=== PATIENT | male | born 1975 | race Caucasian/White ===

== ENCOUNTER 2018-12-12 13:22 | Emergency (ER) | payer MEDICAID ==
--- NOTE | 2018-12-12 14:03 | EDM.PDOC ---
ED HPI GENERAL MEDICAL PROBLEM - General Chief Complaint: Abdominal Pain Stated Complaint: ABDOMINAL PAIN, CRAMPING, DIZZINESS Time Seen by Provider: 12/12/18 13:22 Source of Information: Reports: Patient History Limitations: Reports: No Limitations - History of Present Illness INITIAL COMMENTS - FREE TEXT/NARRATIVE: 43 y.o.w.m came to the ED due generalized abd. pain, more so at his mid upper and right upper abd. No N/V/D, no trauma, no prev surgeries. It does not matter what food he is eating. No blood in stool. No F/C No trauma. No other acute med issues. Pt takes Omeprazole daily. BP 131/87 RR 18 Pulse ox 98% on RA Pulse 98 Temp 36.7 Onset Date: 11/20/18 Onset Time: 10:00 Duration: Getting Worse, Intermittent Location: Reports: Abdomen Quality: Reports: Ache, Burning, Dull, Pressure Severity: Moderate Improves with: Reports: None Worsens with: Reports: None Context: Reports: Other Associated Symptoms: Reports: No Other Symptoms Upper Abdomen Pain Score (Numeric/FACES): 5 - Related Data Allergies Allergy/AdvReac Type Severity Reaction Status Date / Time Penicillins Allergy Cannot Verified 12/12/18 13:49 Remember Home Meds: Home Meds . [Unable to Verify Home Med List] 12/12/18 [History] ED ROS GENERAL - Review of Systems Review Of Systems: See Below Constitutional: Reports: No Symptoms HEENT: Reports: No Symptoms Respiratory: Reports: No Symptoms Cardiovascular: Reports: No Symptoms Endocrine: Reports: No Symptoms GI/Abdominal: Reports: Abdominal Pain : Reports: No Symptoms Musculoskeletal: Reports: No Symptoms Skin: Reports: No Symptoms Neurological: Reports: No Symptoms Psychiatric: Reports: No Symptoms Hematologic/Lymphatic: Reports: No Symptoms Immunologic: Reports: No Symptoms ED EXAM, GI/ABD - Physical Exam Exam: See Below Exam Limited By: No Limitations General Appearance: Alert, WD/WN, Mild Distress Eyes: Bilateral: Normal Appearance Ears: Normal External Exam Nose: Normal Inspection Throat/Mouth: Normal Inspection, Normal Lips, Normal Voice, No Airway Compromise Head: Atraumatic, Normocephalic Neck: Normal Inspection, Supple, Non-Tender Respiratory/Chest: No Respiratory Distress, Lungs Clear, Normal Breath Sounds Cardiovascular: Normal Peripheral Pulses, Regular Rate, Rhythm, No Edema, No Gallop, No Murmur, No Rub GI/Abdominal Exam: No Organomegaly, No Distention, No Abnormal Bruit, No Mass, Pelvis Stable, Tender (Mid upper RUQ of abdomen. ) (Male) Exam: Deferred Rectal (Males) Exam: Deferred Back Exam: Normal Inspection, Full Range of Motion Extremities: Normal Inspection, Normal Range of Motion, Non-Tender, No Pedal Edema, Normal Capillary Refill Neurological: Alert, Oriented, CN II-XII Intact, Normal Cognition, Normal Gait, No Motor/Sensory Deficits Psychiatric: Normal Affect, Normal Mood Skin Exam: Warm, Dry, Intact, Normal Color, No Rash Lymphatic: No Adenopathy Course - Vital Signs Text/Narrative:: 43 y.o.w.m came to the ED due generalized abd. pain, more so at his mid upper and right upper abd. No N/V/D, no trauma, no prev surgeries. It does not matter what food he is eating. No blood in stool. No F/C No trauma. No other acute med issues. Pt takes Omeprazole daily. BP 131/87 RR 18 Pulse ox 98% on RA Pulse 98 Temp 36.7 PE: WNWD EW M with abs. pain Imaging: abd, and Duodenal ant wal thickening, possible gastric outlet obstruction Labs: CBC, BMP and UA nl LFTs nl Impression: abd, and Duodenal ant wall thickening, possible gastric outlet obstruction. Tx: None in the ED Reexam: Pt was doing fine in the ED Plan: D/C with instructions Last Recorded V/S: Last Vital Signs Temp 36.8 C 12/12/18 13:22 Pulse 68 12/12/18 13:22 Resp 18 12/12/18 13:22 BP 131/87 12/12/18 13:22 Pulse Ox 99 12/12/18 13:22 - Orders/Labs/Meds Orders: Active Orders 24 hr Category Date Time Status Abdomen Pelvis w Cont [CT] Stat Exams 12/12/18 13:59 Taken Labs: Laboratory Tests 12/12/18 12/12/18 12/12/18 Range/Units 14:15 14:15 14:15 WBC 8.3 (4.5-12.0) X10-3/uL RBC 5.09 (4.30-5.75) x10(6)uL Hgb 15.8 (13.5-17.8) g/dL Hct 45.5 (30.0-51.3) % MCV 89.5 (80-96) fL MCH 31.0 (27.7-33.6) pg MCHC 34.7 (32.2-35.4) g/dL RDW 12.2 (11.5-15.5) % Plt Count 182 (125-369) X10(3)uL MPV 9.5 (7.4-10.4) fL Neut % (Auto) 60.0 (46-82) % Lymph % (Auto) 26.6 (13-37) % [place] % (Auto) 8.6 (4-12) % Eos % (Auto) 2 (1.0-5.0) % Baso % (Auto) 3 H (0-2) % Neut # (Auto) 5.0 (1.6-8.3) # Lymph # (Auto) 2.2 (0.6-5.0) # [place] # (Auto) 0.7 (0.0-1.3) # Eos # (Auto) 0.1 (0.0-0.8) # Baso # (Auto) 0.3 H (0.0-0.2) # PT 9.4 (8.7-11.1) INR 0.97 (0.89-1.13) Sodium 141 (135-145) mmol/L Potassium 3.8 (3.5-5.3) mmol/L Chloride 105 (100-110) mmol/L Carbon Dioxide 26 (21-32) mmol/L BUN 25 H (7-18) mg/dL Creatinine 0.9 (0.70-1.30) mg/dL Est Cr Clr Drug Dosing TNP Estimated GFR (MDRD) > 60 (>60) BUN/Creatinine Ratio 27.8 H (9-20) Glucose 104 (80-116) mg/dL Calcium 9.1 (8.6-10.2) mg/dL Total Bilirubin 0.4 (0.1-1.3) mg/dL Direct Bilirubin 0.12 (0.10-0.20) mg/dL AST 21 (5-25) IU/L ALT 45 H (12-36) U/L Alkaline Phosphatase 69 (56-112) IU/L Total Protein 7.5 (6.0-8.0) g/dL Albumin 4.2 (3.5-5.2) g/dL Amylase (25-115) U/L Urine Color (YELLOW) Urine Appearance (CLEAR) Urine pH (5.0-6.5) Ur Specific [place] (1.010-1.025) Urine Protein (NEGATIVE) mg/dL Urine Glucose (UA) (NORMAL) mg/dL Urine Ketones (NEGATIVE) mg/dL Urine Occult Blood (NEGATIVE) Urine Nitrite (NEGATIVE) Urine Bilirubin (NEGATIVE) Urine Urobilinogen (NEGATIVE) mg/dL Ur Leukocyte Esterase (NEGATIVE) Urine RBC (0-5) Urine WBC (0-5) Ur Squamous Epith Cells (NS,R,O) Urine Bacteria (NS) 12/12/18 12/12/18 Range/Units 14:15 16:00 WBC (4.5-12.0) X10-3/uL RBC (4.30-5.75) x10(6)uL Hgb (13.5-17.8) g/dL Hct (30.0-51.3) % MCV (80-96) fL MCH (27.7-33.6) pg MCHC (32.2-35.4) g/dL RDW (11.5-15.5) % Plt Count (125-369) X10(3)uL MPV (7.4-10.4) fL Neut % (Auto) (46-82) % Lymph % (Auto) (13-37) % [place] % (Auto) (4-12) % Eos % (Auto) (1.0-5.0) % Baso % (Auto) (0-2) % Neut # (Auto) (1.6-8.3) # Lymph # (Auto) (0.6-5.0) # [place] # (Auto) (0.0-1.3) # Eos # (Auto) (0.0-0.8) # Baso # (Auto) (0.0-0.2) # PT (8.7-11.1) INR (0.89-1.13) Sodium (135-145) mmol/L Potassium (3.5-5.3) mmol/L Chloride (100-110) mmol/L Carbon Dioxide (21-32) mmol/L BUN (7-18) mg/dL Creatinine (0.70-1.30) mg/dL Est Cr Clr Drug Dosing Estimated GFR (MDRD) (>60) BUN/Creatinine Ratio (9-20) Glucose (80-116) mg/dL Calcium (8.6-10.2) mg/dL Total Bilirubin (0.1-1.3) mg/dL Direct Bilirubin (0.10-0.20) mg/dL AST (5-25) IU/L ALT (12-36) U/L Alkaline Phosphatase (56-112) IU/L Total Protein (6.0-8.0) g/dL Albumin (3.5-5.2) g/dL Amylase 75 (25-115) U/L Urine Color Yellow (YELLOW) Urine Appearance Clear (CLEAR) Urine pH 6.0 (5.0-6.5) Ur Specific [place] 1.015 (1.010-1.025) Urine Protein Negative (NEGATIVE) mg/dL Urine Glucose (UA) Normal (NORMAL) mg/dL Urine Ketones Negative (NEGATIVE) mg/dL Urine Occult Blood Negative (NEGATIVE) Urine Nitrite Negative (NEGATIVE) Urine Bilirubin Negative (NEGATIVE) Urine Urobilinogen Normal (NEGATIVE) mg/dL Ur Leukocyte Esterase Negative (NEGATIVE) Urine RBC Not seen (0-5) Urine WBC 0-5 (0-5) Ur Squamous Epith Cells Rare (NS,R,O) Urine Bacteria Rare H (NS) Meds: Medications Discontinued Medications Generic Name Dose Route Start Last Admin Trade Name Freq PRN Reason Stop Dose Admin Diatrizoate Meglum/Diatrizoate Sod 30 ml 12/12/18 14:52 12/12/18 15:42 Gastrografin 37% PO 12/12/18 14:53 30 ml . DIRECTED ONE Administration Iopamidol 100 ml 12/12/18 14:52 12/12/18 15:36 Isovue-370 (76%) IV 12/12/18 14:53 100 ml . DIRECTED ONE Administration Departure - Departure Time of Disposition: 16:19 Disposition: Home, Self-Care 01 Condition: Good Clinical Impression: PUD (peptic ulcer disease) - Discharge Information Instructions: Peptic Ulcer, [id number] Referrals: PCP,None [Primary Care Provider] - Forms: ED Department Discharge Additional Instructions: Please cont your Omeprazole, avoid power drinks, spicy food, please f/u with GI specialist [email or web address]. Please come back if your symptoms get worse acutely - My Orders Last 24 Hours: My Active Orders 12/12/18 13:59 Abdomen Pelvis w Cont [CT] Stat - Assessment/Plan Last 24 Hours: My Active Orders 12/12/18 13:59 Abdomen Pelvis w Cont [CT] Stat
[2018-12-12] MEDS ORDERED: Iopamidol 755 Mg/ML 100 ML Bottle IV ONE (14:52)
[2018-12-12] MEDS ORDERED: Diatrizoate Meglumine/Diatrizoate Sodium 37% 30 ML Bottle PO ONE (14:52)
--- NOTE | 2018-12-15 07:21 | CT ---
INDICATION: Generalized abdominal pain, more so periumbilical pain. CT ABDOMEN AND PELVIS WITH CONSTRAST: Spiral 3.75 mm axial sections were obtained through the abdomen and pelvis with oral and IV contrast (100 ml Isovue 370 at 2.2 cc per second) with sagittal and coronal reconstructions 12/12--comparisons. Total exam DLP =2199.30 mGy-cm. Lower lung crespo and pleural spaces visualized appeared normal. The liver, spleen, gallbladder, adrenals, kidneys and pancreas appear to be normal without evidence of a retroperitoneal mass. The appendix was normal seen on axial images 80 through 86. Only very minimal calcification is noted in the left common iliac artery. There is some minimal calcification in the prostate which did not appear grossly enlarged. Urinary bladder was unremarkable. No evidence of free air or bowel obstruction was identified of a definite acute nature. However, there is somewhat distended appearance of the stomach with thickening of the wall of the gastric antrum raising question of antritis-- possible peptic ulcer disease or other abnormality--correlate clinically. The bowel was otherwise unremarkable. Gas and stool is noted in the rectum. Degenerative changes and disc disease are noted at L4-5. IMPRESSION: 1. Thickening of the wall of the gastric antrum with somewhat distended stomach raising question of partial gastric outlet obstruction due to peptic ulcer disease or other etiology in the gastric antrum--correlate clinically. 2. Degenerative changes of disc disease L4-5. 3. Normal appearing appendix. Report was called to Dr. Haq at 1608 hours. [facility]
== END 2018-12-12 16:40 | disposition home or self-care (01) ==
LOC: FB.ED 13:22
DX: K27.9 Peptic ulcer, site unspecified, unspecified as acute or chronic, without hemorrhage or perforation (principal); Z88.0 Allergy status to penicillin
CPT/HCPCS: 36415; 74177; 80048; 80076; 81001; 82150; 85025; 85610; 99284; Q9963; Q9967